=== PATIENT | female | born 1970 | race Caucasian/White ===

== ENCOUNTER → 2021-03-20 | Outpatient (CLI) | payer OTHER ==
[~2021-03-20] MED LIST: AZIT250 PO; CETI10 PO; DIPH50 PO; EPIN.3I IM; FAMO20 PO; HYDGUAL120 PO; METPRE4DP PO; OMEPRAZOLE MAGN20 MG PO; PRED20 PO; PROM25 PO; RABE20
== END | disposition home or self-care (01) ==
LOC: LAB SHORT 17:33
DX: N39.0 Urinary tract infection, site not specified (principal)
CPT/HCPCS: 87086

== ENCOUNTER 2022-01-01 17:11 | Emergency (ER) | payer SELFPAY ==
[~2022-01-01] VITALS: Ht 157.5 cm; Wt 108.9 kg
[2022-01-01 18:10] LABS: BASOPHILS ABSOLUTE AUTO 0.06 K/mm3 (0.00-0.23); BASOPHILS PERCENT AUTO 1 % (0-2); EOSINOPHILS ABSOLUTE AUTO 0.16 K/mm3 (0.00-0.68); EOSINOPHILS PERCENT AUTO 2 % (0-6); Hematocrit 43.2 % (33.0-51.0); Hemoglobin 13.4 g/dL (11.5-16.0); IMMATURE GRAN ABSOLUTE AUTO 0.05 K/mm3 (0.00-0.10); IMMATURE GRAN PERCENT AUTO 1 % (0-1); LYMPHOCYTES ABSOLUTE AUTO 1.54 K/mm3 (0.84-5.20); LYMPHOCYTES PERCENT AUTO 19 % (21-46); MONOCYTES ABSOLUTE AUTO 0.56 K/mm3 (0.16-1.47); MONOCYTES PERCENT AUTO 7 % (4-13); Mean Corpuscular HGB 28.3 pg (26.0-34.0); Mean Corpuscular Volume 91 fL (80-100); Mean Platelet Volume 11.4 fL (9.1-12.4); NEUTROPHILS ABSOLUTE AUTO 5.57 K/mm3 (1.96-9.15); NEUTROPHILS PERCENT AUTO 70 % (41-73); Platelet Count 301 K/mm3 (150-400); RDW Coefficient Variation 14.6 % (11.7-14.2); RDW Standard Deviation 48.9 fL (35.1-46.3); Red Blood Cell Count 4.73 M/mm3 (3.80-5.20); White Blood Cell Count 7.94 K/mm3 (4.00-11.30)
[2022-01-01 18:48] LABS: Albumin, Blood 3.8 g/dL (3.4-5.0); Bilirubin, Total 0.4 mg/dL (0.1-1.0); Bun/Creatinine Ratio 16.7 (12.0-20.0); Calcium, Blood 9.2 mg/dL (8.5-10.1); Creatinine, Blood 0.78 mg/dL (0.40-1.00); Globulin, Blood 3.9 g/dL (2.2-4.0); Potassium, Blood 3.9 mmol/L (3.5-5.5); Total Protein, Blood 7.7 g/dL (6.4-8.2)
[2022-01-01] MEDS ORDERED: PROM25 PO (20:21)
== END 2022-01-01 21:10 | disposition home or self-care (01) ==
LOC: ER 17:11
PROVIDERS: Physician Assistant
DX: R42 Dizziness and giddiness (principal); K08.89 Other specified disorders of teeth and supporting structures; Z79.899 Other long term (current) drug therapy; Z88.0 Allergy status to penicillin
CPT/HCPCS: 36415; 80053; 85025; 93005; 93010; A9270

== ENCOUNTER 2022-03-19 19:01 | Inpatient (IN) | payer OTHER ==
[~2022-03-19] VITALS: Ht 157.5 cm; Wt 100.8 kg
[~2022-03-19 19:01] MED LIST changes: +FERSU300 PO; +HYDCHL25 PO; +METF500 PO; +ZYRTEC10 M2 PO
[2022-03-19 20:15] LABS: BASOPHILS ABSOLUTE AUTO 0.04 K/mm3 (0.00-0.23); BASOPHILS PERCENT AUTO 0 % (0-2); EOSINOPHILS ABSOLUTE AUTO 0.14 K/mm3 (0.00-0.68); EOSINOPHILS PERCENT AUTO 1 % (0-6); Hematocrit 19.9 % (33.0-51.0); Hemoglobin 6.2 g/dL (11.5-16.0); IMMATURE GRAN ABSOLUTE AUTO 0.12 K/mm3 (0.00-0.10); IMMATURE GRAN PERCENT AUTO 1 % (0-1); LYMPHOCYTES ABSOLUTE AUTO 1.41 K/mm3 (0.84-5.20); LYMPHOCYTES PERCENT AUTO 10 % (21-46); MONOCYTES ABSOLUTE AUTO 0.66 K/mm3 (0.16-1.47); MONOCYTES PERCENT AUTO 5 % (4-13); Mean Corpuscular HGB 29.7 pg (26.0-34.0); Mean Corpuscular HGB Conc 31.2 g/dL (31.5-36.5); Mean Corpuscular Volume 95 fL (80-100); Mean Platelet Volume 10.7 fL (9.1-12.4); NEUTROPHILS ABSOLUTE AUTO 11.27 K/mm3 (1.96-9.15); NEUTROPHILS PERCENT AUTO 83 % (41-73); Platelet Count 326 K/mm3 (150-400); RDW Coefficient Variation 15.3 % (11.7-14.2); RDW Standard Deviation 53.6 fL (35.1-46.3); Red Blood Cell Count 2.09 M/mm3 (3.80-5.20); White Blood Cell Count 13.64 K/mm3 (4.00-11.30)
[2022-03-19 20:36] LABS: Albumin, Blood 2.9 g/dL (3.4-5.0); Albumin/Globulin Ratio 0.8 (0.8-1.8); Bilirubin, Total 0.2 mg/dL (0.1-1.0); Calcium, Blood 8.4 mg/dL (8.5-10.1); Globulin, Blood 3.5 g/dL (2.2-4.0); Total Protein, Blood 6.4 g/dL (6.4-8.2)
[2022-03-20 02:04] LABS: BASOPHILS ABSOLUTE AUTO 0.05 K/mm3 (0.00-0.23); BASOPHILS PERCENT AUTO 0 % (0-2); EOSINOPHILS ABSOLUTE AUTO 0.18 K/mm3 (0.00-0.68); EOSINOPHILS PERCENT AUTO 1 % (0-6); Hematocrit 24.3 % (33.0-51.0); IMMATURE GRAN ABSOLUTE AUTO 0.12 K/mm3 (0.00-0.10); IMMATURE GRAN PERCENT AUTO 1 % (0-1); LYMPHOCYTES ABSOLUTE AUTO 2.05 K/mm3 (0.84-5.20); LYMPHOCYTES PERCENT AUTO 15 % (21-46); MONOCYTES ABSOLUTE AUTO 0.72 K/mm3 (0.16-1.47); MONOCYTES PERCENT AUTO 5 % (4-13); Mean Corpuscular HGB 30.1 pg (26.0-34.0); Mean Corpuscular HGB Conc 32.9 g/dL (31.5-36.5); Mean Corpuscular Volume 91 fL (80-100); Mean Platelet Volume 10.9 fL (9.1-12.4); NEUTROPHILS ABSOLUTE AUTO 10.91 K/mm3 (1.96-9.15); NEUTROPHILS PERCENT AUTO 78 % (41-73); Platelet Count 284 K/mm3 (150-400); RDW Standard Deviation 49.8 fL (35.1-46.3); Red Blood Cell Count 2.66 M/mm3 (3.80-5.20); White Blood Cell Count 14.03 K/mm3 (4.00-11.30)
--- NOTE | 2022-03-20 05:12 | NUR ---
SHIFT SUMMARY A/OX4, 1P ASSIST TO BSC. ED ADMIT APPROX 2200. 2 UNITS PRBC TRANSFUSED THIS SHIFT. PT CONTINUES TO HAVE VAGINAL BLEEDING WITH LARGE QUARTER SIZE CLOTS NOTED. C/O HEADACHE, MEDICATED PER EMAR. TELE SR IN THE 80S. VSS, BED IN LOWEST POSITION WITH CALL LIGHT IN REACH. WILL CONTINUE TO MONITOR AND REPORT TO ONCOMING RN.
[2022-03-20] MEDS ORDERED: MICROGESTIN 211 EACH PO (14:15)
--- NOTE | 2022-03-20 14:52 | NUR ---
DISCHARGE: VAGINAL BLEEDING CONTINUES TO SLOW. PROVIDERS HAVE BEEN UPDATED ON PROGRESS. PT HAS BEEN CLEARED FOR DISCHARGE HOME. IV ACCESS DC'd WNL, PT DRESSES SELF. PT PROVIDED W/DC PAPERWORK AND INSTRUCTIONS. PT ESCORTED FROM UNIT VIA W/C W/OUT INCIDENT.
== END 2022-03-20 14:43 | disposition home or self-care (01) | DRG 760 ==
LOC: ER 19:01 → PCU 21:11
PROVIDERS: Student in an Organized Health Care Education/Training Program; ADMIT Obstetrics & Gynecology
PROC: 30233N1 Transfusion of Nonautologous Red Blood Cells into Peripheral Vein, Percutaneous Approach (ICD-10-PCS; principal; 2022-03-19)
DX: D25.9 Leiomyoma of uterus, unspecified (principal); D62 Acute posthemorrhagic anemia; I95.9 Hypotension, unspecified; I10 Essential (primary) hypertension; K21.9 Gastro-esophageal reflux disease without esophagitis; E11.9 Type 2 diabetes mellitus without complications; J45.909 Unspecified asthma, uncomplicated; Z90.49 Acquired absence of other specified parts of digestive tract; Z85.038 Personal history of other malignant neoplasm of large intestine; Z88.0 Allergy status to penicillin; Z91.018 Allergy to other foods; Z91.048 Other nonmedicinal substance allergy status; Z79.84 Long term (current) use of oral hypoglycemic drugs; Z79.899 Other long term (current) drug therapy
CPT/HCPCS: 36415; 36430; 80053; 82947; 84703; 85025; 86850; 86900; 86901; 86923; 93005; 93010; 96374; 99285-25; A9270; J2405; J7030; P9016

== ENCOUNTER 2022-05-05 05:00 | Emergency (ER) | payer OTHER ==
[~2022-05-05] VITALS: Ht 157.5 cm; Wt 122.5 kg
[~2022-05-05 05:00] MED LIST changes: +MICROGESTIN 211 EACH PO
[2022-05-05] MEDS ORDERED: POTCHL20ER PO (05:42)
[2022-05-05 06:18] LABS: BASOPHILS ABSOLUTE AUTO 0.09 K/mm3 (0.00-0.23); BASOPHILS PERCENT AUTO 1 % (0-2); EOSINOPHILS PERCENT AUTO 2 % (0-6); IMMATURE GRAN ABSOLUTE AUTO 0.18 K/mm3 (0.00-0.10); IMMATURE GRAN PERCENT AUTO 1 % (0-1); LYMPHOCYTES ABSOLUTE AUTO 2.23 K/mm3 (0.84-5.20); LYMPHOCYTES PERCENT AUTO 17 % (21-46); MONOCYTES ABSOLUTE AUTO 0.72 K/mm3 (0.16-1.47); MONOCYTES PERCENT AUTO 5 % (4-13); Mean Corpuscular HGB 28.6 pg (26.0-34.0); Mean Corpuscular HGB Conc 30.3 g/dL (31.5-36.5); Mean Corpuscular Volume 94 fL (80-100); Mean Platelet Volume 10.6 fL (9.1-12.4); NEUTROPHILS ABSOLUTE AUTO 9.79 K/mm3 (1.96-9.15); NEUTROPHILS PERCENT AUTO 73 % (41-73); Platelet Count 441 K/mm3 (150-400); RDW Standard Deviation 48.2 fL (35.1-46.3); White Blood Cell Count 13.31 K/mm3 (4.00-11.30)
[2022-05-05 06:31] LABS: Albumin, Blood 3.3 g/dL (3.4-5.0); Albumin/Globulin Ratio 0.8 (0.8-1.8); Bilirubin, Total 0.1 mg/dL (0.1-1.0); Bun/Creatinine Ratio 17.3 (12.0-20.0); Calcium, Blood 8.5 mg/dL (8.5-10.1); Creatinine, Blood 0.64 mg/dL (0.40-1.00); Globulin, Blood 4.2 g/dL (2.2-4.0); Potassium, Blood 3.9 mmol/L (3.5-5.5); Total Protein, Blood 7.5 g/dL (6.4-8.2)
[2022-05-05] MEDS ORDERED: OXYC5 PO (08:21)
== END 2022-05-05 08:29 | disposition home or self-care (01) ==
LOC: ER 05:00
PROVIDERS: Emergency Medicine
DX: N93.8 Other specified abnormal uterine and vaginal bleeding (principal); E11.9 Type 2 diabetes mellitus without complications; I10 Essential (primary) hypertension; Z88.0 Allergy status to penicillin; Z91.09 Other allergy status, other than to drugs and biological substances; Z91.02 Food additives allergy status; Z79.899 Other long term (current) drug therapy
CPT/HCPCS: 80053; 84703; 85025; 86850; 86900; 86901; 96374; 99284-25; A9270; J2270

== ENCOUNTER 2022-05-10 11:17 | Inpatient (IN) | payer OTHER ==
[~2022-05-10] VITALS: Ht 170.2 cm; Wt 98.4 kg
[~2022-05-10 11:17] MED LIST changes: +OXYC5 PO; +POTCHL20ER PO
[2022-05-10 12:20] LABS: BASOPHILS ABSOLUTE AUTO 0.07 K/mm3 (0.00-0.23); BASOPHILS PERCENT AUTO 1 % (0-2); EOSINOPHILS ABSOLUTE AUTO 0.24 K/mm3 (0.00-0.68); EOSINOPHILS PERCENT AUTO 2 % (0-6); Hematocrit 21.3 % (33.0-51.0); Hemoglobin 6.3 g/dL (11.5-16.0); IMMATURE GRAN PERCENT AUTO 3 % (0-1); LYMPHOCYTES ABSOLUTE AUTO 1.59 K/mm3 (0.84-5.20); LYMPHOCYTES PERCENT AUTO 13 % (21-46); MONOCYTES ABSOLUTE AUTO 0.54 K/mm3 (0.16-1.47); MONOCYTES PERCENT AUTO 4 % (4-13); Mean Corpuscular HGB 28.1 pg (26.0-34.0); Mean Corpuscular HGB Conc 29.6 g/dL (31.5-36.5); Mean Corpuscular Volume 95 fL (80-100); Mean Platelet Volume 10.1 fL (9.1-12.4); NEUTROPHILS ABSOLUTE AUTO 9.37 K/mm3 (1.96-9.15); NEUTROPHILS PERCENT AUTO 77 % (41-73); NRBC ABSOLUTE 0.04 K/mm3 (0.00-0.02); NRBC Auto 0.3 /100 WBC (0.0-0.2); Platelet Count 386 K/mm3 (150-400); RDW Coefficient Variation 14.7 % (11.7-14.2); RDW Standard Deviation 50.4 fL (35.1-46.3); Red Blood Cell Count 2.24 M/mm3 (3.80-5.20); White Blood Cell Count 12.21 K/mm3 (4.00-11.30)
[2022-05-10 12:37] LABS: Albumin/Globulin Ratio 0.8 (0.8-1.8); Bilirubin, Total 0.2 mg/dL (0.1-1.0); Calcium, Blood 8.5 mg/dL (8.5-10.1); Creatinine, Blood 0.73 mg/dL (0.40-1.00); Globulin, Blood 3.8 g/dL (2.2-4.0); Potassium, Blood 3.6 mmol/L (3.5-5.5); Total Protein, Blood 6.8 g/dL (6.4-8.2)
[2022-05-10] MEDS ORDERED: METF500 (13:57)
--- NOTE | 2022-05-10 16:38 | NUR ---
PT ARRIVED TO UNIT FROM ER VIA GURNEY STOOD AND TRANSFERED TO BED, REPORTS FEELING WEAK. STATES WEAKNESS HAS IMPROVED SINCE EARLIER NOW THAT BLOOD TRANSFUSION HAS BEEN GOING. ON ARRIVAL TRANSITIONED BLOOD TRANSFUSION FROM THE BLOOD TO NS. ALLOWING TO FLUSH THROUGH THEN TRANSFUSION WILL BE DONE. CONTINUING DOCUMENTATION ON PAPER CHART FROM ER. PT DENIES ANY CHANGE IN SHORTNESS OF BREATH SINCE ARRIVAL TO HOSPITAL. SHE DENIES ANY ITCHING OR SIGNS OF REACTION. [id number]. RESTING IN BED, SPOUSE, YANIRA AT BEDSIDE. CALL LIGHT IN REACH. PT DENIES FURTHER NEEDS AT THIS TIME.
--- NOTE | 2022-05-10 16:54 | NUR ---
SPOKE WITH DR. WRIGHT. ORDERS RECIEVED TO TRANSFUSE 1 MORE UNIT OF PRBC FOR TOTAL OF 2. ORDER A CBC AFTER 2ND UNIT AND TO MAKE PATIENT NPO AT MIDNIGHT. PT AWARE AND UNDERSTANDING OF NPO STATUS.
[2022-05-10] MEDS ORDERED: LISI5 PO (16:58)
--- NOTE | 2022-05-10 17:07 | NUR ---
1ST UNIT OF PRBC DONE INFUSING. PT TOLERATED WELL. LUNGS REMAINS CLEAR.
--- NOTE | 2022-05-10 18:16 | NUR ---
SHIFT SUMMARY 2ND UNIT OF PRBC INFUSING AT THIS TIME. PT TOLERATING WELL. CURRENTLY EATING DINNER. SMALL AMOUNT OF DRAINAGE WHILE HERE. PLAN IS FOR PATIENT TO BE NPO AFTER MIDNIGHT FOR PROCEDURE TOMORROW. PT AGREEABLE AND EXCITED FOR POSSIBLE PROCEDURE. CALL LIGHT IN REACH. PT CALLS APPROPRIATLY.
[2022-05-10 22:16] LABS: BASOPHILS ABSOLUTE AUTO 0.06 K/mm3 (0.00-0.23); BASOPHILS PERCENT AUTO 1 % (0-2); EOSINOPHILS ABSOLUTE AUTO 0.21 K/mm3 (0.00-0.68); EOSINOPHILS PERCENT AUTO 2 % (0-6); Hematocrit 24.8 % (33.0-51.0); Hemoglobin 7.6 g/dL (11.5-16.0); IMMATURE GRAN ABSOLUTE AUTO 0.32 K/mm3 (0.00-0.10); IMMATURE GRAN PERCENT AUTO 3 % (0-1); LYMPHOCYTES ABSOLUTE AUTO 1.71 K/mm3 (0.84-5.20); LYMPHOCYTES PERCENT AUTO 15 % (21-46); MONOCYTES ABSOLUTE AUTO 0.55 K/mm3 (0.16-1.47); MONOCYTES PERCENT AUTO 5 % (4-13); Mean Corpuscular HGB 28.6 pg (26.0-34.0); Mean Corpuscular HGB Conc 30.6 g/dL (31.5-36.5); Mean Corpuscular Volume 93 fL (80-100); NEUTROPHILS ABSOLUTE AUTO 8.63 K/mm3 (1.96-9.15); NEUTROPHILS PERCENT AUTO 75 % (41-73); NRBC ABSOLUTE 0.03 K/mm3 (0.00-0.02); NRBC Auto 0.3 /100 WBC (0.0-0.2); Platelet Count 319 K/mm3 (150-400); RDW Coefficient Variation 15.9 % (11.7-14.2); RDW Standard Deviation 53.4 fL (35.1-46.3); Red Blood Cell Count 2.66 M/mm3 (3.80-5.20); White Blood Cell Count 11.48 K/mm3 (4.00-11.30)
--- NOTE | 2022-05-11 01:32 | NUR ---
INCREASED BLEEDING/WEAKNESS PT IS HAVING INCREASED BLEEDING AND WEAKNESS THIS AM. PT IS PASSING LARGE CLOTS ABOUT THE SIZE OF A K[place], AND IS MAKING FREQUENT TRIPS TO THE BATHROOM ABOUT EVERY HALF HOUR. REPEAT VITALS ARE STABLE. LAST HGB 7.6 AFTER SECOND UNIT OF PRBC'S. PT ALSO COMPLAINING OF ABD PAIN AND CRAMPING. PT REPORTS THAT SHE WAS FEELING BETTER AFTER RECEIVING THE BLOOD, BUT SHE REPORTS THAT SHE IS STARTING TO FEEL POORLY LIKE HOW SHE DID BEFORE SHE CAME IN. PT APPEARS MUCH WEAKER THAN SHE DID WHEN I CAME ON SHIFT. DR. WRIGHT CONTACTED AT 0130, NOTIFIED HER OF PT INCREASED BLEEDING, THE PASSING OF LARGE CLOTS AND PAIN. RECEIVED ORDER FOR IBUPROPHEN, HYDROCODONE FOR PAIN. SPRINTEC CONTROL ONE TIME TO HELP CONTROL BLEEDING AND 1 UNIT OF PRBCS TO TRANSFUSE NOW. ORDER FOR 2 UNITS PRBC'S TO BE ON STANDBY FOR SURGERY TOMORROW. REPEAT LABS TO BE DONE LATER THIS AM.
--- NOTE | 2022-05-11 02:00 | NUR ---
CONTROL SPRINTEC NOT AVALIBLE IN PHARMACY. PHARMACIST GENEVA BERRY GAVE THREE DIFFERENT SUBSTITUTES AND RECOMMENDED WE CONTACT DR. WRIGHT FOR CLARIFICATION OF THE ONE SHE WANTED. THE THREE OPTIONS GIVEN BY PHARMACIST WAS ESTRADIOL/NORETHINDRONE 1/0.5, NORETHIDRONE/ESTRADOIL 1 MG/0.2 MG, AND PREMARIN .3, .625, .9. DR. WRIGHT CONTACTED, THE THREE OPTIONS THAT WERE RECOMMENDED BY PHARMACY WERE READ TO DR. WRIGHT. DR. WRIGHT ORDERED ESTRADIOL/NORETHINDRONE 1 MG/0.5 MG A SUBSTITUTE FOR SPRINTEC.
--- NOTE | 2022-05-11 05:03 | NUR ---
SHIFT SUMMARY PT HAS A DIFFICULT NIGHT, PT HAS BEEN UP FREQUENTLY T/O THE NIGHT TO VOID, EACH TIME SHE VOIDS SHE IS PASSING LARGE CLOTS AND LARGE AMOUNTS OF BLOOD. WHEN I CAME ON TO SHIFT PT WAS FINISHING UP ON HER SECOND UNIT AND SHE REPORTED FEELING BETTER, HGB HAD INCREASED ABOVE 7. HOWEVER THE NIGHT PROGRESSED PT HAD BECOME WEAKER WITH EACH BATHROOM TRIP AND THE PASSING OF BLOOD. DR. WRIGHT MADE AWARE AND AN ADDITIONAL UNIT OF PRBC WAS ORDERED TO INFUSE THIS SHIFT. PT HAS BEEN MEDICATED FOR ABD CRAMPING. VITALS HAVE BEEN CLOSELY MONITORED AND HAVE BEEN STABLE. PLAN IS FOR SURGERY TODAY, SHE HAS BEEN NPO SINCE MIDNIGHT. BED IN LOWEST POSITION, CALL LIGHT WITHIN REACH.
[2022-05-11 07:09] LABS: BASOPHILS ABSOLUTE AUTO 0.05 K/mm3 (0.00-0.23); BASOPHILS PERCENT AUTO 1 % (0-2); EOSINOPHILS ABSOLUTE AUTO 0.21 K/mm3 (0.00-0.68); EOSINOPHILS PERCENT AUTO 2 % (0-6); Hematocrit 24.3 % (33.0-51.0); Hemoglobin 7.7 g/dL (11.5-16.0); IMMATURE GRAN ABSOLUTE AUTO 0.26 K/mm3 (0.00-0.10); IMMATURE GRAN PERCENT AUTO 2 % (0-1); LYMPHOCYTES ABSOLUTE AUTO 1.81 K/mm3 (0.84-5.20); LYMPHOCYTES PERCENT AUTO 17 % (21-46); MONOCYTES ABSOLUTE AUTO 0.53 K/mm3 (0.16-1.47); MONOCYTES PERCENT AUTO 5 % (4-13); Mean Corpuscular HGB 28.9 pg (26.0-34.0); Mean Corpuscular HGB Conc 31.7 g/dL (31.5-36.5); Mean Corpuscular Volume 91 fL (80-100); Mean Platelet Volume 9.9 fL (9.1-12.4); NEUTROPHILS ABSOLUTE AUTO 7.83 K/mm3 (1.96-9.15); NEUTROPHILS PERCENT AUTO 73 % (41-73); NRBC ABSOLUTE 0.02 K/mm3 (0.00-0.02); NRBC Auto 0.2 /100 WBC (0.0-0.2); Platelet Count 287 K/mm3 (150-400); RDW Coefficient Variation 15.7 % (11.7-14.2); Red Blood Cell Count 2.66 M/mm3 (3.80-5.20); White Blood Cell Count 10.69 K/mm3 (4.00-11.30)
[2022-05-11 07:27] LABS: Albumin, Blood 2.6 g/dL (3.4-5.0); Albumin/Globulin Ratio 0.8 (0.8-1.8); Bilirubin, Total 0.7 mg/dL (0.1-1.0); Bun/Creatinine Ratio 9.6 (12.0-20.0); Calcium, Blood 7.9 mg/dL (8.5-10.1); Creatinine, Blood 0.73 mg/dL (0.40-1.00); Globulin, Blood 3.4 g/dL (2.2-4.0); Potassium, Blood 3.7 mmol/L (3.5-5.5)
[2022-05-11 09:42] LABS: Hematocrit 26.1 % (33.0-51.0); Hemoglobin 8.1 g/dL (11.5-16.0)
--- NOTE | 2022-05-11 09:48 | NUR ---
DAY SURGERY RN IN ROOM TO FREELANCE COPYWRITER PT FOR OR AT 0805
--- NOTE | 2022-05-11 10:08 | NUR ---
PT ARRIVED TO UNIT VIA HOSPITAL BED. Surgical site prepped with 2% Chlorhexidine cloth wipe. Patient confirms NPO status and agrees with scheduled surgery. Pre-Op teaching done. Pt verbalizes understanding. PATIENTS PURSE AND GLASSES LEFT IN PATIENT'S ROOM. PER DR WRIGHT'S ORDER, 1 UNIT OF BLOOD STARTED IN PRE-OP, SEE CHART NOTES. PT TOLERATING IT WELL.
--- NOTE | 2022-05-11 10:53 | NUR ---
05/11/22 Karin3 Cristel Thurston 14FR COOK INSERTED WITHOUT DIFFICULTY CLEAR YELLOW FLUID OBTAINED BALLOON INFLATED WITH 10CC HECK APPLIED TO THIGH DRAINING
--- NOTE | 2022-05-11 14:23 | NUR ---
POST OP: REPORT RECEIVED FROM [facility] ADULT EDUCATION PROFESSIONAL. PT TO UNIT AT 1330. PT IS ORIENTED AND DROWSY, AWAKENS TO VOICE. NOTED HTN, SP02 97% ON 1L NC. PT IS PAINFUL, FENTANYAL BALLAST CLEANING OPERATOR STARTED. VERIFIED WITH KALEB COVINGTON. SURGICAL SITE WNL
[2022-05-11 16:14] LABS: Hematocrit 31.2 % (33.0-51.0); Hemoglobin 10.1 g/dL (11.5-16.0); Mean Corpuscular HGB 28.6 pg (26.0-34.0); Mean Corpuscular HGB Conc 32.4 g/dL (31.5-36.5); Mean Corpuscular Volume 88 fL (80-100); Mean Platelet Volume 10.2 fL (9.1-12.4); NRBC ABSOLUTE 0.02 K/mm3 (0.00-0.02); NRBC Auto 0.1 /100 WBC (0.0-0.2); Platelet Count 315 K/mm3 (150-400); RDW Coefficient Variation 16.9 % (11.7-14.2); RDW Standard Deviation 52.8 fL (35.1-46.3); Red Blood Cell Count 3.53 M/mm3 (3.80-5.20); White Blood Cell Count 22.43 K/mm3 (4.00-11.30)
[2022-05-11 16:40] LABS: BAND PERCENT MAN 12 % (0-8); BASOPHILS PERCENT MAN 0 % (0-2); EOSINOPHILS PERCENT MAN 0 % (0-6); LYMPHOCYTES ABSOLUTE MAN 0.67 K/mm3 (0.84-5.20); LYMPHOCYTES PERCENT MAN 3 % (21-46); METAMYELOCYTE ABSOLUTE MAN 0.22 K/mm3 (0.00-0.00); METAMYELOCYTE PERCENT MAN 1 % (0-0); MONOCYTES ABSOLUTE MAN 0.22 K/mm3 (0.16-1.47); MONOCYTES PERCENT MAN 1 % (4-13); SEG NEUTROPHILS PERCENT MAN 83 % (41-73); TOTAL CELLS COUNTED 100
--- NOTE | 2022-05-11 18:47 | NUR ---
PT PAIN UNMANAGED WITH FENTANYAL HOUSING ASSISTANT, TORADOL, NARCO AND K-PAD/ REPOSITIONING. PT CONTINUES TO RATE PAIN 8/10, CRAMPING AT ABD. SURGICAL SITE WNL. SCANT BLEED AT ANTONIETA PAD. DR. WRIGHT'S OFFICE CALLED AT 1630-DR. WRIGHT WITH A PT, AWAITING CALL BACK.
--- NOTE | 2022-05-11 18:52 | NUR ---
AT [address] WRIGHT'S OFFICE, PT CONTINUES TO RATE PAIN 9/10 AND IS CRYING IN PAIN. ANSWERING SERVICE CALLED AND THIS RN SPOKE WITH DR. WRIGHT AT ABOUT 1740, SEE NEW ORDERS.
--- NOTE | 2022-05-11 18:53 | NUR ---
SUMMARY: PT IS POD0 TOTAL HYSTER. A/O TONIGHT, VSS. PT REPORTS THAT PAIN IS NOW 4/10 AFTER RECEIVING PERCOCET AND 25MCG OF FENTANYAL...SEE EMAR. SURGICAL SITE WNL, SMALL AMOUNT OF DRY DRAINAGE AT DRESSING AND SCANT BLEED AT ANTONIETA PAD. COOK DRAINING TO GRAVITY, CLEAR YELLOW URINE. PT SHIFTING SLEF IN BED, PT REPORTS TOO PAINFUL TO AMBULATE. PT HAS HAD NAUSEA INTERMITTANTLY, MEDICATED PER EMAR. ABLE TO HAVE SOME SIPS OF WATER AND JELLO. PT USING CALL LIGHT AND IS PLEASENT. WILL PASS REPORT TO NOC RN
[2022-05-12 04:56] LABS: BASOPHILS ABSOLUTE AUTO 0.03 K/mm3 (0.00-0.23); BASOPHILS PERCENT AUTO 0 % (0-2); EOSINOPHILS ABSOLUTE AUTO 0.02 K/mm3 (0.00-0.68); EOSINOPHILS PERCENT AUTO 0 % (0-6); Hematocrit 27.7 % (33.0-51.0); Hemoglobin 8.9 g/dL (11.5-16.0); IMMATURE GRAN ABSOLUTE AUTO 0.26 K/mm3 (0.00-0.10); IMMATURE GRAN PERCENT AUTO 2 % (0-1); LYMPHOCYTES ABSOLUTE AUTO 1.31 K/mm3 (0.84-5.20); LYMPHOCYTES PERCENT AUTO 8 % (21-46); MONOCYTES ABSOLUTE AUTO 0.88 K/mm3 (0.16-1.47); MONOCYTES PERCENT AUTO 5 % (4-13); Mean Corpuscular HGB 28.7 pg (26.0-34.0); Mean Corpuscular HGB Conc 32.1 g/dL (31.5-36.5); Mean Corpuscular Volume 89 fL (80-100); Mean Platelet Volume 10.1 fL (9.1-12.4); NEUTROPHILS ABSOLUTE AUTO 14.17 K/mm3 (1.96-9.15); NEUTROPHILS PERCENT AUTO 85 % (41-73); Platelet Count 271 K/mm3 (150-400); RDW Coefficient Variation 16.9 % (11.7-14.2); RDW Standard Deviation 53.1 fL (35.1-46.3); White Blood Cell Count 16.67 K/mm3 (4.00-11.30)
--- NOTE | 2022-05-12 05:37 | NUR ---
SHIFT SUMMARY PT POD 0 HYSTERECTOMY WITH OPEN APPROACH. PT HAS RESTED OFF AND ON T/O THE NIGHT. SHE HAS HAD INTERMITTENT PAIN IN HER ABD THAT SHE DESCRIBES SHARP AND STABBING. FENTANYL DOSIER OPERATOR IN PLACE. PERCOCET GIVEN PRN FOR BREAKTHROUGH. SCANT VAGINAL BLEEDING POST OP. OTHERWISE NO OTHER SIGNS OF BLEEDING. DRESSING IS INTACT WITH NO BLEEDING FROM INCISION SITE. POST OP VITALS ARE STABLE. IVF INFUSING. PT TOLERATING PO INTAKE. COOK CATHETER REMAINS IN PLACE WITH ADEQUATE OUTPUT. PT DID NOT FEEL READY TO AMBULATE YET, BUT STATES SHE WILL BE READY TO HAVE THE CATHETER REMOVED AROUND 0800 TODAY. NO OTHER CHANGES TO REPORT OVERNIGHT. BED IN LOWEST POSITION, CALL LIGHT WITHIN REACH.
--- NOTE | 2022-05-12 10:44 | NUR ---
DR WRIGHT IN TO SEE PT.
--- NOTE | 2022-05-12 18:12 | NUR ---
SUMMARY NO ACUTE CHANGES T/O SHIFT. PT POD 1 FOR BERENICE. TRANSVERSE DRESSING TO LOWER ABD HAS SMALL AMOUNT SANG DRAINAGE NOTED, UNCHANGED T/O SHIFT. PT'S COOK DC'D THIS AM, PT VOIDING W/O DIFFICULTY. PLACED ABDOMINAL BINDER FOR COMFORT. PAIN MANAGED PER EMAR. PT PASSING FLATUS, USING SIMETHICONE PER ORDERS FOR COMFORT. MEDICATED THIS EVENING PER ORDERS FOR NAUSEA. PT HAS AMBULATED IN ROOM MULTIPLE TIMES. CALL LIGHT IN REACH.
--- NOTE | 2022-05-13 05:17 | NUR ---
SUMMARY: NO ACUTE EVENTS OVERNIGHT. VSS. PAIN MEDS GIVEN PER EMAR WELL GAS MEDS. PATIENT AMBULATED UP TO RESTROOM INDEPENDENTLY. PATIENT DID REPORT SHE HAS STARTED TO PASS GAS. ABD BINDER IN PLACE TO ASSIST PATIENT WITH PAIN. PATIENT CALLS APPROPRIATELY.
[2022-05-13] MEDS ORDERED: MOTRIN IB200 MG PO (10:01)
[2022-05-13] MEDS ORDERED: Percocet 5-3251 EACH PO (10:02)
--- NOTE | 2022-05-13 10:19 | NUR ---
REPORT GIVEN AND CARE TURNED OVER TO SEAN Aguirre RN
--- NOTE | 2022-05-13 11:54 | NUR ---
DISCHARGE PATIENT EATING, DRINKING, AND VOIDING WELL. PAIN MANAGED PER EMAR. PATIENT AMBULATING WELL INDEPENDELTY. NO VAGINAL BLEEDING NOTED. DISCUSSED DISCHARGE INSTRUCTIONS, PATIENT WAITING FOR RIDE.
--- NOTE | 2022-05-13 12:31 | NUR ---
PATIENT ESCORTED OUT VIA W/C
== END 2022-05-13 12:26 | disposition home or self-care (01) | DRG 742 ==
LOC: ER 11:17 → SURS 14:55
PROVIDERS: Physician Assistant; ADMIT Obstetrics & Gynecology
PROC: 30233N1 Transfusion of Nonautologous Red Blood Cells into Peripheral Vein, Percutaneous Approach (ICD-10-PCS; 2022-05-10)
PROC: 0UT90ZZ Resection of Uterus, Open Approach (ICD-10-PCS; 2022-05-11)
PROC: 0UT70ZZ Resection of Bilateral Fallopian Tubes, Open Approach (ICD-10-PCS; 2022-05-11)
PROC: 30233N1 Transfusion of Nonautologous Red Blood Cells into Peripheral Vein, Percutaneous Approach (ICD-10-PCS; 2022-05-11)
PROC: 0UT20ZZ Resection of Bilateral Ovaries, Open Approach (ICD-10-PCS; principal; 2022-05-11 09:30)
DX: D25.9 Leiomyoma of uterus, unspecified (principal); D62 Acute posthemorrhagic anemia; Z28.21 Immunization not carried out because of patient refusal; E11.9 Type 2 diabetes mellitus without complications; I10 Essential (primary) hypertension; J45.909 Unspecified asthma, uncomplicated; N83.292 Other ovarian cyst, left side; Z90.49 Acquired absence of other specified parts of digestive tract; Z98.890 Other specified postprocedural states; Z88.0 Allergy status to penicillin; Z91.018 Allergy to other foods; Z91.048 Other nonmedicinal substance allergy status; Z79.84 Long term (current) use of oral hypoglycemic drugs; Z79.899 Other long term (current) drug therapy
CPT/HCPCS: 36415; 36430; 80053; 82947; 84702; 85014; 85018; 85025; 86850; 86900; 86901; 86923; 88108; 88307; 94762; 99285-25; A9270; J0330; J0690; J1100; J1885; J2250; J2370; J2405; J2550; J2704; J2765; J3010; J7030; J7050; J7120; P9016

== ENCOUNTER 2023-02-13 18:56 | Emergency (ER) | payer OTHER ==
[~2023-02-13] VITALS: Ht 157.5 cm; Wt 99.3 kg
[~2023-02-13 18:56] MED LIST changes: +LISI5 PO; +METF500; +MOTRIN IB200 MG PO; +Percocet 5-3251 EACH PO
[2023-02-13 19:22] VITALS: BP 160/100
== END 2023-02-13 20:31 | disposition home or self-care (01) ==
LOC: ER 18:56
DX: S61.211A Laceration without foreign body of left index finger without damage to nail, initial encounter (principal); E11.9 Type 2 diabetes mellitus without complications; I10 Essential (primary) hypertension; J45.909 Unspecified asthma, uncomplicated; W26.0XXA Contact with knife, initial encounter; Y93.G1 Activity, food preparation and clean up; Y99.0 Civilian activity done for income or pay; Z88.0 Allergy status to penicillin; Z91.040 Latex allergy status; Z79.899 Other long term (current) drug therapy
CPT/HCPCS: 12001; 99282-25